=== PATIENT | female | born 1960 | race African-American/Black ===

== ENCOUNTER → 2017-03-23 | Outpatient (CLI) | payer BC, OTHER ==
[~2017-03-23] MED LIST: CYMBALTA30 MG PO; EFFEXOR XR37.5 MG; HYDROCHLOROTHIA25 M1 PO; LIPITOR10 MG; NORCO 5-325 TA1 EACH PO; NORVASC 5 MG TAB5 MG PO; PROPRANOLOL 8080 M1 PO; TRAMADOL 50 MG50 MG PO; VITAMIN D400 UNI1
== END ==
LOC: RAD 01:20
DX: Z12.31 Encounter for screening mammogram for malignant neoplasm of breast (principal)